=== PATIENT | male | born 1995 ===

== ENCOUNTER 2021-04-19 08:00 | Outpatient (CLI) | payer OTHER ==
--- NOTE | 2021-04-19 15:22 | XRAY Report ---
PROCEDURE: Ankle 3 View RT INDICATIONS: R ANKLE PX TECHNIQUE: 3 views of the ankle were acquired. COMPARISON: None FINDINGS: Bones: No fractures or dislocations. Ankle mortise is normally aligned. No suspicious bony lesions . Soft tissues: Soft tissue swelling about the lateral ankle. Small talar effusion. Achilles tendon a ppears normal. IMPRESSION: Soft tissue swelling about the lateral ankle with small tibiotalar effusion. Findings iniguez ggest ankle sprain. No fracture. Reviewed by: Star Callejas MD on 04/19/2021 3:21 PM PDT Approved by: Star Callejas MD on 04/19/2021 3:21 PM PDT Station ID: [id number]
== END 2021-04-19 23:59 ==
LOC: DI.N 08:00
PROVIDERS: ATTEND Family Medicine
DX: M25.571 Pain in right ankle and joints of right foot (principal); M25.471 Effusion, right ankle